=== PATIENT | male | born 1955 | race Caucasian/White ===

== ENCOUNTER 2017-12-12 11:00 | Emergency (ER) | payer OTHER ==
[~2017-12-12] VITALS: Ht 180.3 cm; Wt 83.9 kg
[~2017-12-12 11:00] MED LIST: COLACE100 MG PO; GLIPIZIDE XL2.5 MG PO; GLUCOPHAGE1000 MG PO; LIPITOR40 MG PO; MIRALAX255 GM PO; OXYCONTIN40 MG PO; PERCOCET 7.5-31 EACH PO; VALSARTAN-HCTZ1 EAC4 PO
[2017-12-12] MEDS ORDERED: JANUMET 50-1,01 EACH PO (11:19)
[2017-12-12] MEDS ORDERED: FARXIGA5 MG PO (11:19)
[2017-12-12] MEDS ORDERED: AVAPRO300 MG PO (11:20)
[2017-12-12] MEDS ORDERED: KEFLEX500 M1 PO (11:42)
[2017-12-12 11:57] VITALS: BP 146/93
== END 2017-12-12 11:57 | disposition home or self-care (01) ==
LOC: M.ERS 11:00
DX: L72.8 Other follicular cysts of the skin and subcutaneous tissue (principal); E11.9 Type 2 diabetes mellitus without complications; E78.00 Pure hypercholesterolemia, unspecified; Z90.49 Acquired absence of other specified parts of digestive tract

== ENCOUNTER 2018-08-10 15:27 | Emergency (ER) | payer OTHER ==
[~2018-08-10] VITALS: Ht 177.8 cm; Wt 79.8 kg
[~2018-08-10 15:27] MED LIST changes: +AVAPRO300 MG PO; +FARXIGA5 MG PO; +JANUMET 50-1,01 EACH PO; +KEFLEX500 M1 PO
[2018-08-10] MEDS ORDERED: DOXYCYCLINE MO100 M1 PO (16:04)
[2018-08-10 16:28] VITALS: BP 142/79
== END 2018-08-10 16:34 | disposition home or self-care (01) ==
LOC: M.ERS 15:27
DX: L02.31 Cutaneous abscess of buttock (principal); E11.9 Type 2 diabetes mellitus without complications; E78.00 Pure hypercholesterolemia, unspecified; Z90.49 Acquired absence of other specified parts of digestive tract

== ENCOUNTER 2019-03-10 13:56 | Emergency (ER) | payer OTHER ==
[~2019-03-10] VITALS: Ht 180.3 cm; Wt 79.4 kg
[~2019-03-10 13:56] MED LIST changes: +DOXYCYCLINE MO100 M1 PO
[2019-03-10 15:32] VITALS: BP 112/73
== END 2019-03-10 15:33 | disposition home or self-care (01) ==
LOC: M.ERS 13:56
DX: M25.521 Pain in right elbow (principal); E11.9 Type 2 diabetes mellitus without complications; E78.00 Pure hypercholesterolemia, unspecified; Z90.49 Acquired absence of other specified parts of digestive tract

== ENCOUNTER 2020-05-09 09:32 | Emergency (ER) | payer OTHER, MEDICARE ==
[~2020-05-09] VITALS: Ht 177.8 cm; Wt 79.4 kg
[~2020-05-09 09:32] MED LIST changes: -AVAPRO300 MG PO; +FARXIGA10 MG PO; -FARXIGA5 MG PO; +IRBESARTAN-HCT1 EAC1 PO; +LIPITOR 20 MG T20 M1 PO; -LIPITOR40 MG PO
[2020-05-09] MEDS ORDERED: NORVASC5 MG PO (09:45)
[2020-05-09] MEDS ORDERED: HYDROCODON-ACE1 EAC7 PO (10:58)
[2020-05-09] MEDS ORDERED: DOXYCYCLINE 10100 M2 PO (10:58)
[2020-05-09 11:07] VITALS: BP 133/88
== END 2020-05-09 11:08 | disposition home or self-care (01) ==
LOC: M.ERS 09:32
DX: L02.31 Cutaneous abscess of buttock (principal); E11.9 Type 2 diabetes mellitus without complications; I10 Essential (primary) hypertension; E78.00 Pure hypercholesterolemia, unspecified; Z90.49 Acquired absence of other specified parts of digestive tract

== ENCOUNTER 2020-05-18 08:41 | Emergency (ER) | payer OTHER, MEDICARE ==
[~2020-05-18] VITALS: Ht 177.8 cm; Wt 79.4 kg
[~2020-05-18 08:41] MED LIST changes: +DOXYCYCLINE 10100 M2 PO; +HYDROCODON-ACE1 EAC7 PO; +NORVASC5 MG PO
[2020-05-18 09:50] VITALS: BP 126/68
== END 2020-05-18 09:51 | disposition home or self-care (01) ==
LOC: M.ERS 08:41
DX: L02.31 Cutaneous abscess of buttock (principal); E11.9 Type 2 diabetes mellitus without complications; E78.00 Pure hypercholesterolemia, unspecified; I10 Essential (primary) hypertension; Z90.49 Acquired absence of other specified parts of digestive tract